=== PATIENT | male | born 1965 | race African-American/Black ===

== ENCOUNTER 2017-11-04 20:40 | Inpatient (IN) | payer BC ==
[2017-11-05 00:30] LABS: ADD MAN DIFF? NO
[2017-11-05 00:34] LABS: BASO % 0 % (0-3); EOS # 0.1 x10^3/uL (0.0-0.7); EOS % 2 % (0-3); HEMATOCRIT 41.7 % (39.0-53.0); HEMOGLOBIN 14.4 g/dL (13.0-17.5); LYMPH # 2.7 x10^3/uL (1.0-4.8); LYMPH % 48 % (24-48); MEAN CORPUSCULAR HEMOGLOBIN 31 pg (25-35); MEAN CORPUSCULAR HGB CONC 34 g/dL (31-37); MEAN CORPUSCULAR VOLUME 90 fL (79-100); MONO # 0.7 x10^3/uL (0.0-1.1); MONO % 12 % (0-9); NEUT # 2.1 x10^3uL (1.8-7.7); NEUT % 37 % (31-73); PLATELET COUNT 225 x10^3/uL (140-400); RED BLOOD COUNT 4.62 x10^6/uL (4.30-5.70); RED CELL DISTRIBUTION WIDTH 13.7 % (11.5-14.5); WHITE BLOOD COUNT 5.7 x10^3/uL (4.0-11.0)
[2017-11-05 00:42] LABS: ANION GAP 14 (6-14); BLOOD UREA NITROGEN 18 mg/dL (8-26); BUN/CREATININE RATIO 26 (6-20); CALCIUM 8.9 mg/dL (8.5-10.1); CARBON DIOXIDE 27 mmol/L (21-32); CHLORIDE 103 mmol/L (98-107); CREATININE 0.7 mg/dL (0.7-1.3); GFR 142.7; GLUCOSE 160 mg/dL (70-99); POTASSIUM 3.7 mmol/L (3.5-5.1); SODIUM 144 mmol/L (136-145)
[2017-11-05] MEDS: fentaNYL PF VIAL 100 MCG/2 ML VIAL IV ×5 (00:43→12:15)
[2017-11-05 00:44] LABS: BILIRUBIN,URINE NEGATIVE (NEG); CLARITY,URINE CLOUDY; COLOR,URINE YELLOW; GLUCOSE,URINE NEGATIVE (NEG); NITRITE,URINE NEGATIVE (NEG); PROTEIN,URINE NEGATIVE (NEG-TRACE); UROBILINOGEN,URINE 0.2 mg/dL (0.2 mg/dL)
[2017-11-05 00:49] LABS: ALBUMIN 3.9 g/dL (3.4-5.0); ALBUMIN/GLOBULIN RATIO 1.1 (1.0-1.7); ALK PHOS 63 U/L (46-116); ALT (SGPT) 51 U/L (16-63); AST (SGOT) 33 U/L (15-37); TOTAL BILIRUBIN 0.5 mg/dL (0.2-1.0); TOTAL PROTEIN 7.4 g/dL (6.4-8.2)
[2017-11-05 00:50] LABS: BACTERIA,URINE 0 /HPF (0-FEW); RBC,URINE 0 /HPF (0-2); SQUAMOUS EPITHELIAL CELL,UR FEW /LPF; WBC,URINE OCC /HPF (0-4)
[2017-11-05] MEDS: MORPHINE SULFATE 4 MG/ML DISP.SYRIN. IV (01:52)
[2017-11-05] MEDS ORDERED: ONDANSETRON PF 4 MG/2 ML VIAL. IV (02:00)
[2017-11-05 02:30] LABS: TROPONINI < 0.017 ng/mL (0.000-0.055)
[2017-11-05] MEDS: IV NORMAL SALINE 1000ML BAG 1,000 ML IV (02:33)
[2017-11-05 06:33] LABS: TROPONINI < 0.017 ng/mL (0.000-0.055)
[2017-11-05 08:54] LABS: TROPONINI < 0.017 ng/mL (0.000-0.055)
[2017-11-05] MEDS: KETOROLAC TROMETHAMINE 10 MG TABLET PO ×2 (17:12→23:06)
[2017-11-06 03:32] LABS: ADD MAN DIFF? NO
[2017-11-06 04:23] LABS: BASO % 0 % (0-3); EOS # 0.1 x10^3/uL (0.0-0.7); EOS % 2 % (0-3); HEMOGLOBIN 13.9 g/dL (13.0-17.5); LYMPH # 2.3 x10^3/uL (1.0-4.8); LYMPH % 28 % (24-48); MEAN CORPUSCULAR HEMOGLOBIN 31 pg (25-35); MEAN CORPUSCULAR HGB CONC 35 g/dL (31-37); MEAN CORPUSCULAR VOLUME 89 fL (79-100); MONO # 1.3 x10^3/uL (0.0-1.1); MONO % 16 % (0-9); NEUT # 4.4 x10^3uL (1.8-7.7); NEUT % 54 % (31-73); PLATELET COUNT 208 x10^3/uL (140-400); RED BLOOD COUNT 4.48 x10^6/uL (4.30-5.70); RED CELL DISTRIBUTION WIDTH 13.4 % (11.5-14.5); WHITE BLOOD COUNT 8.1 x10^3/uL (4.0-11.0)
[2017-11-06 05:00] LABS: ALBUMIN 3.5 g/dL (3.4-5.0); ALBUMIN/GLOBULIN RATIO 1.1 (1.0-1.7); ALK PHOS 48 U/L (46-116); ALT (SGPT) 45 U/L (16-63); ANION GAP 8 (6-14); AST (SGOT) 27 U/L (15-37); BLOOD UREA NITROGEN 14 mg/dL (8-26); BUN/CREATININE RATIO 16 (6-20); CALCIUM 8.8 mg/dL (8.5-10.1); CARBON DIOXIDE 28 mmol/L (21-32); CHLORIDE 104 mmol/L (98-107); CREATININE 0.9 mg/dL (0.7-1.3); GFR 106.8; GLUCOSE 122 mg/dL (70-99); POTASSIUM 3.9 mmol/L (3.5-5.1); SODIUM 140 mmol/L (136-145); TOTAL BILIRUBIN 1.4 mg/dL (0.2-1.0); TOTAL PROTEIN 6.8 g/dL (6.4-8.2)
[2017-11-06] MEDS: KETOROLAC TROMETHAMINE 10 MG TABLET PO ×2 (05:20→11:56)
== END 2017-11-06 16:20 | disposition home or self-care (01) | DRG 185 ==
LOC: 2 NORTH 11-05 01:42 → ER 20:40
DX: S22.20XA Unspecified fracture of sternum, initial encounter for closed fracture (principal); E11.9 Type 2 diabetes mellitus without complications; Z83.3 Family history of diabetes mellitus; V43.52XA Car driver injured in collision with other type car in traffic accident, initial encounter; Y92.410 Unspecified street and highway as the place of occurrence of the external cause; Y93.89 Activity, other specified; Y92.488 Other paved roadways as the place of occurrence of the external cause; Y99.8 Other external cause status
CPT/HCPCS: 36415; 71045; 71120; 71250; 74176; 80053; 81001; 84484; 85025; 93005; 93306; 96374; 96375; 96376; 99285; 99285-25; J2270; J3010; J7030